=== PATIENT | male | born 1925 | race Caucasian/White ===

== ENCOUNTER 2017-03-19 07:45 | Day surgery (SDC) | payer OTHER ==
[2017-03-12 11:02] VITALS: BMI 21.5
[2017-03-19] MEDS ORDERED: LIDOCAINE HCL/PF 2% SDV 5ML VIAL ONE (07:48)
[2017-03-19] MEDS ORDERED: PROPOFOL 20 ML ONE ×2 (07:48)
[2017-03-19 10:25] VITALS: TEMP 97.6
[2017-03-19 10:27] VITALS: BP 128/61; PULSE 54
--- NOTE | 2017-03-20 18:15 | PATH ---
Surgical Pathology Report Patient Name: MAURICIO RODRIGUEZ [facility]. Rec. #: [id number] /Age/Gender: 1925 (Age: 89) / M Account: [id number] Location: [facility]-ENDOSCOPY Taken: 03/19/2017 Received: 03/19/2017 Reported: 03/20/2017 Physicians: Gonzalez Guillaume M.D. Specimen(s) Received BX RECTUM Clinical History history of colorectal cancer Final Diagnosis RECTUM, BIOPSY: COLONIC/RECTAL MUCOSA SHOWING MILD SURFACE HYPERPLASTIC CHANGE. Electronically Signed Corina Monteiro M.D. Gross Description Received in formalin, labeled "rectum" are 2 butler, irregular portions of soft tissue averaging 0.3 cm. in greatest dimension. The specimens are submitted in toto in one cassette. 03/19/201703/19/2017
== END 2017-03-19 10:25 | disposition home or self-care (01) ==
LOC: FASU-ENDO 07:45
PROVIDERS: ATTEND Internal Medicine Gastroenterology
PROC: 0DBP8ZX Excision of Rectum, Via Natural or Artificial Opening Endoscopic, Diagnostic (ICD-10-PCS; principal; 2017-03-19 09:24)
DX: Z85.048 Personal history of other malignant neoplasm of rectum, rectosigmoid junction, and anus (principal); K57.30 Diverticulosis of large intestine without perforation or abscess without bleeding; K62.89 Other specified diseases of anus and rectum
CPT/HCPCS: 88305-TC